=== PATIENT | female | born 1975 | race African-American/Black ===

== ENCOUNTER 2018-08-03 11:01 | Observation (INO) | payer SELFPAY ==
[~2018-08-03] VITALS: Ht 163.8 cm; Wt 141.4 kg
[2018-08-03] VITALS (8 sets, daily range): BP systolic 125–152; BP diastolic 83–111; BMI 52.5
[~2018-08-03 11:01] MED LIST: ACETAMINOPHEN500 M1 PO; ADDERALL 20 MG20 M1 PO; ADIPEX-P37.5 M1 PO; AURODEX OTIC SO10 ML LEFT EAR; BACTROBAN 22 GM22 GM TOPICAL; BUTALB-APAP-CA1 EACH PO; COLACE100 MG PO; COUMADIN5 MG PO; COUMADIN7.5 MG PO; CYCLOBENZAPRINE10 MG PO; DILANTIN100 MG PO; DILAUDID4 MG PO; EC-NAPROSYN500 MG PO; EFFEXOR75 MG PO; ELIQUIS5 MG PO; GEODON40 MG PO; HYDROCODONE-APA1 TAB PO; IMIPRAMINE10 MG PO; KLONOPIN1 MG PO; OXYCODONE H5 MG/5 ML PO; OXYCONTIN10 MG PO; PERCOCET 10/3251 TA1 PO; SEROQUEL400 MG PO; SOMA350 MG PO; ULTRAM50 MG PO; VALIUM5 MG PO; VISTARIL25 MG PO; XANAX1 MG PO; ZANTAC150 MG PO; ZESTORETIC 10/11 TAB PO; ZYPREXA10 MG PO
[2018-08-03 12:01] LABS: BASOPHILS 0.2 % (0-2); EOSINOPHILS 0.5 % (0-7); HEMATOCRIT 39.3 % (36.0-48.0); IMMATURE GRANULOCYTES 0.3 % (0-5); LYMPHOCYTES 19.5 % (15-50); MCHC 33.1 g/dL (31.0-37.0); MCV 87.7 fL (80.0-100.0); MEAN PLATELET VOLUME 10.6 fL (7.4-10.4); MONOCYTES 5.5 % (2-11); RBC 4.48 10x6/uL (4.00-5.40); RDW 13.6 % (11.5-14.5); WBC 9.4 10x3/uL (4.8-10.8)
[2018-08-03 12:02] LABS: UDS - AMPHET POSITIVE QUAL (NEGATIVE); UDS - BARB NEGATIVE QUAL (NEGATIVE); UDS - BENZO NEGATIVE QUAL (NEGATIVE); UDS - COCAINE POSITIVE QUAL (NEGATIVE); UDS - OPIATE NEGATIVE QUAL (NEGATIVE); UDS - PCP NEGATIVE QUAL (NEGATIVE); UDS - THC NEGATIVE QUAL (NEGATIVE)
[2018-08-03 12:11] LABS: PLATELET COUNT 267 10x3/uL (130-400)
[2018-08-03 12:14] LABS: ALBUMIN 3.3 g/dL (3.4-5.0); ANION GAP 15.9 mmol/L (8-16); BILIRUBIN - TOTAL 0.78 mg/dL (0.2-1.3); CALCIUM 9.3 mg/dL (8.5-10.1); CARBON DIOXIDE 24.6 mmol/L (21.0-32.0); CREATININE - SERUM 1.1 mg/dL (0.6-1.3); POTASSIUM - SERUM 3.5 mmol/L (3.5-5.1); PROTEIN - SERUM 7.5 g/dL (6.4-8.2)
[2018-08-03 12:16] LABS: APPEARANCE SL CLDY (CLEAR); BACTERIA MANY /hpf (NONE SEEN); BILIRUBIN NEGATIVE (NEGATIVE); COLOR YELLOW (YELLOW); EPITHELIAL CELLS 0-5 /hpf (0-5); GLUCOSE NEGATIVE (NEGATIVE); KETONE NEGATIVE (NEGATIVE); MUCUS <1+ /lpf (NONE SEEN); NITRITE NEGATIVE (NEGATIVE); PROTEIN NEGATIVE (NEGATIVE); RED CELLS - URINE 0-5 /hpf (0-5); SPECIFIC GRAVITY 1.005 (1.005-1.020); UROBILINOGEN NORMAL (NORMAL)
--- NOTE | 2018-08-03 12:22 | NUR ---
PT CALLING OUT TO NURSE AT THIS TIME, STATES THAT SHE WANTS TO SEE HER CHILDREN. THE PATIENT IS INFORMED AT THIS TIME THAT SHE HAS NOT HAD ANY VISITORS IN THE DEPARTMENT. SHE BEGINS CRYING AND REPORTS THAT SHE CAN HEAR HER CHILDREN. INFORMED PATIENT THAT HER CHILDREN WERE NOT HERE AND THAT IF THEY CAME THEY WOULD BE ALLOWED TO SEE HER. PATIENT CONTINUES CRYING.
--- NOTE | 2018-08-03 14:05 | NUR ---
PT STABLE AAO X 4 CALL LIGHT WITHIN REACH, DENIES NEEDS, WILL CONTINUE TO MONITOR,
--- NOTE | 2018-08-03 15:08 | NUR ---
INFORMATION FAXED TO CALL CENTER. PT REFUSED MEDICATION. PT IN ROOM CRYING WITH PARANOID THOUGHTS. A CUP WAS GIVEN SO PT CAN GET WATER. REFUSED WATER FROM STAFF. CALL LIGHT WITHIN REACH, WILL CONTINUE TO MONITOR.
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
--- NOTE | 2018-08-03 17:25 | NUR ---
REPORT CALLED TO NURSE JENNIFER. ROOM 2311. PT STABLE AT THIS TIME.
--- NOTE | 2018-08-03 18:22 | NUR ---
PT RECIEVED TO ROOM PLACED ON MONITORING EQUIPMENT AND ALARMS SET, NO UN USED EQUIPMENT IN ROOM, DR KATE HERE AND IN ROOM FOR CONSULT
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
--- NOTE | 2018-08-03 20:00 | NUR ---
PT STATES "THAT SANDWICH IS HORRIBLE", OFFERED PT SOMETHING ELSE TO EAT AND WAS GOING TO THROW SANDWICH AWAY, BUT PT WISHES TO KEEP IT FOR NOW. VALERIO LEMON KING SALMON PROVIDED WITH ICE, WILL CONT TO MONITOR FOR CHANGES.
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
--- NOTE | 2018-08-03 21:45 | NUR ---
PT ASSISTED UP TO BSC, VOIDED APPROX 250 CONCENTRATED URINE AND HAD A SMALL FORMED BROWN STOOL, PT GOT SELF BACK TO BED AND WAS RECONNECTING MONITORING EQUIPMENT, CALM AND COOPERATIVE AT THIS TIME.
--- NOTE | 2018-08-03 22:30 | NUR ---
PT STATES " THOSE PILLS YOU HAVE FOR ME ARE JUST MY REGULAR MEDICINE NOTHING ELSE", REASSURED PT THE ONLY THING THAT WOULD BE GIVEN TO HER WAS WHAT IS ORDERED AND THAT WAS HER GEODON AND CLONOPIN. PT STATES " I JUST WANT THE VOICES IN MY HEAD TO STOP", EVENING MEDS GIVEN, PT DENIES FURTHER NEEDS.
--- NOTE | 2018-08-03 23:30 | NUR ---
REASSESSMENT COMPLETED, PT RESTING IN BED EYES CLOSED, RESP EVEN AND UNLABORED, VSS, WILL CONT TO MONITOR FOR CHANGES.
[2018-08-04] VITALS (23 sets, daily range): BP systolic 87–136; BP diastolic 58–94; Ht 163.8 cm; Wt 141.4 kg
--- NOTE | 2018-08-04 01:00 | NUR ---
NO CHANGES IN STATUS AT THIS TIME, REMAINS VISIBLE TO NURSES STATION, CALL LIGHT IN REACH.
--- NOTE | 2018-08-04 03:00 | NUR ---
REASSESSMENT COMPLETED, PT RESTING IN BED EYES CLOSED, RESP EVEN AND UNLABORED, VSS, PT EASILY AWAKENS, DENIES NEEDS, WILL CONT TO MONITOR.
--- NOTE | 2018-08-04 05:30 | NUR ---
PT RESTING IN BED, VSS, BP STABLE, CM-SR, NO S/S OF DISTRESS, WILL REPORT TO ONCOMING SHIFT.
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
--- NOTE | 2018-08-04 16:00 | MORECARE ---
CASE MANAGEMENT DISCHARGE SUMMARY PATIENT: HI MARTINEZ UNIT: [id number] ADM DATE: 08/03/18 AGE: 42 : 75 SEX: F ROOM/BED: D.2311 AUTHOR: BURAK MENARD PHYSICIAN: REFERRING PHYSICIAN: ALFONSO SAMUEL MD DATE OF SERVICE: 08/04/18 Discharge Plan Patient Name: HI MARTINEZ [facility] [facility] 1975 Planned Disposition: Psych facility Anticipated Discharge Date: Discharge Date: Expected LOS: Initial Reviewer: [email or web address] Initial Review Date: 08/03/2018 Generated: 08/04/18 5:00 pm Comments DCP- Discharge Planning Updated by [email or web address]: Franci Whipple on 08/04/18 12:[address] CM spoke with transfer center to check status of transfer to psychiatric facility. Transfer center stated that she has been denied at several facilities but they have just sent packet to a few other facilities. Awaiting for acceptance. CM will continue to follow and assist as needed with discharge planning / needs. Patient Name: HI MARTINEZ Page [id number] at 1600 All edits/amendments must be made on the electronic document DICTATION DATE: 08/04/181558 RN NIGHT: FRANCIE 08/04/181558 RPT#: [id number] DC DATE: STATUS: ADM IN [facility] [address] [place] [address] END OF REPORT
--- NOTE | 2018-08-04 17:56 | NUR ---
PATIENT SPOKE WITH CALL CENTER ABOUT POSSIBLE PLACEMENT, SHE HAS SINCE BECOME VERY PARINOID, STATES, "THIS SHIT IS VERY SKETCHY". INFORMATION GATHER AT THE REQUEST OF CALL CENTER AND WILL BE FAXED AND CALLED UPON RETRIEVAL FROM LAB AND CHART.
--- NOTE | 2018-08-04 19:30 | NUR ---
REPORT REC'D AND CARE ASSUMED, PT STANDING AT WINDOW IN ROOM, WANTING TO KNOW WHY THERE IS A SCREW IN WINDOW TO HOLD IT SHUT, APPEARS AGGITATED THAT IT WILL NOT OPEN, BSC MOVED FOR PATIENTS COMFORT, BED UP TOO HIGH IN THE AIR, PT STATES "THE BED IS TOO HIGH FOR ME" BED LOWERED INTO LOWEST POSITION, PT BACK TO BED AND ALL MONITORS ESTABLISHED. PT REQUESTING A SNACK PUDDING AND ULI VELOZ PROVIDED, SR UP X 2, CALL LIGHT IN REACH.
--- NOTE | 2018-08-04 20:30 | NUR ---
TRANSFER CENTER CALLED WITH A ROOM NUMBER AT [facility], [place], [place]. EXPLAINED TO PATIENT BED IS AVAILABLE, PT CONSENTS TO TRANSFER AND SIGNATURE OBTAINED.
--- NOTE | 2018-08-04 20:45 | NUR ---
REPORT CALLED TO WAGNER AT [facility], BUSINESS PROCESS ENGINEER NOTIFIED OF PT TRANSFERRING.
--- NOTE | 2018-08-04 20:55 | NUR ---
TUTU CALLED FROM THE TRANSFER CENTER TO SAY THAT PT NEEDED A MENTAL HEALTH SCREENING BEFORE SHE COULD BE TRANSFERRED. [facility], ATTEMPTED TO CALL [facility]AD[facility], ONLY ABLE TO GET AN AUTOMATED MESSAGE, WILL CALL BACK LATER.
--- NOTE | 2018-08-04 21:15 | NUR ---
SPOKE WITH TUTU FROM THE TRANSFER CENTER STATED SHE HAD GOTTEN IN CONTACT WITH [facility] AND A SOCAIL WORKER WOULD BE COMING BY THIS EVENING TO ASSESS PATIENT.
--- NOTE | 2018-08-04 21:30 | NUR ---
PT LYING IN BED CRYING STATES " I JUST WANT TO GO HOME", ATTEMPTED TO REASSURE PT AT THIS TIME, VSS, WILL CONT TO MONITOR FOR CHANGES.
--- NOTE | 2018-08-04 22:20 | NUR ---
PT REMAINS AGITATED AND CRYING, AGREES TO TAKE EVENING MEDS AT THIS TIME, EVENING MEDS GIVEN ORDERED, PT REQUESTING A COKE, VALERIO COLA PROVIDED.
--- NOTE | 2018-08-04 22:40 | NUR ---
[facility] CALLED FOR TRANSPORT.
--- NOTE | 2018-08-04 22:45 | NUR ---
[facility] UNIT TO DO MENTAL HEALTH SCREENING, PT REMAINS TEARFUL UPON KIMBER ENTERING ROOM, PT REQUESTS NURSE BE IN ROOM WELL, I REMAINED IN ROOM WITH PATIENT THROUGH THE SCREENING.
--- NOTE | 2018-08-05 12:41 | CN ---
PATIENT NAME:HI MARTINEZ MEDICAL RECORD: [id number] : 75 LOCATION:NATAL[facility].2311 ADMIT DATE: 08/03/18 ACCOUNT: [id number] CONSULTING PHYSICIAN: LING WEINBERG MD REFERRING PHYSICIAN: ALFONSO SAMUEL MD DATE OF CONSULTATION: 08/03/2018 PSYCHIATRIC CONSULTATION IDENTIFYING DATA: The patient is 42 years old and she is admitted to the hospital secondary to a polysubstance overdose. CHIEF COMPLAINT: Hallucinations. HISTORY OF PRESENT ILLNESS: The patient is very agitated, saying that she is hearing voices, seeing things. She is afraid to go to sleep and afraid someone or something is going to hurt her. Unfortunately, she has also been using methamphetamine and cocaine. Further issues that are problematic is the fact that she was just recently discharged from [facility] for an inpatient stay, but has not been taking any of her discharge medications. She tells me that she took a handful of hydrochlorothiazide, but apparently in the ER, she said she had taken some other things she could not remember. No evidence of acute toxic or metabolic instability at this point and given the fact that what she is taking is unknown, she has been admitted to the intensive care unit for observation and evaluation and if things are clear tomorrow, she can reasonably be transitioned to an inpatient psychiatric facility, which is what she wants to happen. MENTAL STATUS EXAMINATION: The patient is awake, alert and oriented to person, place, time and situation. Her mood is anxious. Her affect is constricted. Thought processes are circumstantial. Memory, concentration, and abstraction abilities are moderately impaired and she denies that she would actively seek to harm herself or others. She is endorsing very vivid active and frightening hallucinations. ASSESSMENT: 1. Schizophrenia. 2. Polysubstance abuse. PLAN: The patient is acutely ill, psychotic and dangerous. She says that she was going to stick a knife into her neck, but instead she decided to take the pills. She needs to be transferred to acute inpatient psychiatric care as soon as that is practicable. I am going to order some p.r.n. and scheduled medications to assist with her current level of agitation. TRANSINT:[id number] Voice Confirmation ID: [id number] DOCUMENT ID: [id number] CONSULT REPORT [id number] HI MARTINEZ PETER MD at 1241 CC: [id number] DICTATION DATE: 08/03/18 183 FLASH DRIER OPERATOR: 08/04/18 0033 DIS IN 08/04/18 [facility] [address] [place] [address]
--- NOTE | 2018-08-07 16:31 | MORECARE ---
CASE MANAGEMENT DISCHARGE SUMMARY PATIENT: HI MARTINEZ UNIT: [id number] ADM DATE: 08/03/18 AGE: 43 : 75 SEX: F ROOM/BED: D.2311 AUTHOR: BURAK MENARD PHYSICIAN: REFERRING PHYSICIAN: ALFONSO SAUMEL MD DATE OF SERVICE: 08/07/18 Discharge Plan Patient Name: HI MARTINEZ [facility] [facility] 1975 Planned Disposition: Psych facility Anticipated Discharge Date: Discharge Date: 08/04/2018 Expected LOS: Initial Reviewer: [email or web address] Initial Review Date: 08/03/2018 Generated: 08/07/18 5:30 pm Comments DCP- Discharge Planning Updated by [email or web address]: Franci Whipple on 08/04/18 12:[address] CM spoke with transfer center to check status of transfer to psychiatric facility. Transfer center stated that she has been denied at several facilities but they have just sent packet to a few other facilities. Awaiting for acceptance. CM will continue to follow and assist as needed with discharge planning / needs. Last DP export: 08/04/18 3:00 pm Patient Name: HI MARTINEZ Page [phone] at 1631 All edits/amendments must be made on the electronic document DICTATION DATE: 08/07/18 1630 PASSENGER CAR UPHOLSTERER APPRENTICE: FRANCIE 08/07/18 1630 RPT#: [id number] DC DATE:08/04/18 STATUS: DIS IN [facility] [address] [place] [address] END OF REPORT
[2018-08-10 19:10] LABS: CHLAMYDIA TRACHOMATIS, NAA Negative (Negative)
== END 2018-08-04 23:30 | disposition short-term general hospital (02) ==
LOC: D.ER 11:01 → D.EDHOLD 15:31 → D.ICU 15:31 → D.EDHOLD 15:31 → D.ICU 15:31 → OBSVTIME 16:41 → D.ICU 17:13
PROVIDERS: Emergency Medicine; ADMIT Internal Medicine Nephrology
DX: T50.2X2A Poisoning by carbonic-anhydrase inhibitors, benzothiadiazides and other diuretics, intentional self-harm, initial encounter (principal); F17.203 Nicotine dependence unspecified, with withdrawal; I10 Essential (primary) hypertension; N39.0 Urinary tract infection, site not specified; E11.9 Type 2 diabetes mellitus without complications; G40.909 Epilepsy, unspecified, not intractable, without status epilepticus; F41.8 Other specified anxiety disorders; F14.10 Cocaine abuse, uncomplicated; F15.10 Other stimulant abuse, uncomplicated; E66.01 Morbid (severe) obesity due to excess calories; Z68.43 Body mass index [BMI] 50.0-59.9, adult

== ENCOUNTER 2019-04-09 05:45 | Emergency (ER) | payer MEDICAID ==
[~2019-04-09] VITALS: Ht 163.8 cm; Wt 158.8 kg
[2019-04-09 05:51] VITALS: Ht 163.8 cm; Wt 158.8 kg
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
[2019-04-09 06:33] LABS: BASOPHILS 0.3 % (0-2); EOSINOPHILS 1.7 % (0-7); HEMATOCRIT 41.8 % (36.0-48.0); HEMOGLOBIN 13.3 g/dL (12-16); IMMATURE GRANULOCYTES 0.2 % (0-5); MCH 28.4 pg (26.0-34.0); MCHC 31.8 g/dL (31.0-37.0); MCV 89.3 fL (80.0-100.0); MEAN PLATELET VOLUME 10.3 fL (7.4-10.4); MONOCYTES 6.7 % (2-11); NEUTROPHILS 52.1 % (40-80); PLATELET COUNT 288 10x3/uL (130-400); RBC 4.68 10x6/uL (4.00-5.40); RDW 13.8 % (11.5-14.5); WBC 6.6 10x3/uL (4.8-10.8)
[2019-04-09 06:40] LABS: HCG SERUM NEGATIVE (NEGATIVE)
[2019-04-09 06:53] LABS: ALBUMIN 3.5 g/dL (3.4-5.0); ANION GAP 12.1 mmol/L (8-16); BILIRUBIN - TOTAL 0.9 mg/dL (0.2-1.3); CALCIUM 9.3 mg/dL (8.5-10.1); CARBON DIOXIDE 30.1 mmol/L (21.0-32.0); POTASSIUM - SERUM 4.2 mmol/L (3.5-5.1); PROTEIN - SERUM 6.9 g/dL (6.4-8.2)
[2019-04-09 08:54] LABS: APPEARANCE CLEAR (CLEAR); BILIRUBIN NEGATIVE (NEGATIVE); COLOR STRAW (YELLOW); GLUCOSE NEGATIVE (NEGATIVE); KETONE NEGATIVE (NEGATIVE); NITRITE NEGATIVE (NEGATIVE); PROTEIN NEGATIVE (NEGATIVE); SPECIFIC GRAVITY 1.005 (1.005-1.020); UROBILINOGEN NORMAL (NORMAL)
[2019-04-09 08:59] LABS: UDS - AMPHET POSITIVE QUAL (NEGATIVE); UDS - BARB NEGATIVE QUAL (NEGATIVE); UDS - BENZO NEGATIVE QUAL (NEGATIVE); UDS - COCAINE NEGATIVE QUAL (NEGATIVE); UDS - OPIATE NEGATIVE QUAL (NEGATIVE); UDS - PCP NEGATIVE QUAL (NEGATIVE); UDS - THC NEGATIVE QUAL (NEGATIVE)
[2019-04-09 10:57] VITALS: BP 127/79
== END 2019-04-09 11:27 | disposition home or self-care (01) ==
LOC: D.ER 05:45
PROVIDERS: Family Medicine
DX: R45.4 Irritability and anger (principal); F15.10 Other stimulant abuse, uncomplicated; E11.9 Type 2 diabetes mellitus without complications; I10 Essential (primary) hypertension

== ENCOUNTER 2019-04-10 17:05 | Emergency (ER) | payer MEDICAID ==
[~2019-04-10] VITALS: Ht 163.8 cm; Wt 112.3 kg
[2019-04-10 17:08] VITALS: Ht 163.8 cm; Wt 112.3 kg
[2019-04-10 19:27] LABS: BASOPHILS 0.4 % (0-2); EOSINOPHILS 1.5 % (0-7); HEMATOCRIT 41.8 % (36.0-48.0); HEMOGLOBIN 13.7 g/dL (12-16); IMMATURE GRANULOCYTES 0.4 % (0-5); LYMPHOCYTES 37.5 % (15-50); MCH 28.9 pg (26.0-34.0); MCHC 32.8 g/dL (31.0-37.0); MCV 88.2 fL (80.0-100.0); MEAN PLATELET VOLUME 10.7 fL (7.4-10.4); MONOCYTES 7.6 % (2-11); NEUTROPHILS 52.6 % (40-80); PLATELET COUNT 298 10x3/uL (130-400); RBC 4.74 10x6/uL (4.00-5.40); RDW 13.7 % (11.5-14.5); WBC 7.9 10x3/uL (4.8-10.8)
[2019-04-10 19:34] LABS: APPEARANCE HAZY (CLEAR); BILIRUBIN NEGATIVE (NEGATIVE); COLOR YELLOW (YELLOW); GLUCOSE NEGATIVE (NEGATIVE); KETONE NEGATIVE (NEGATIVE); NITRITE NEGATIVE (NEGATIVE); PROTEIN NEGATIVE (NEGATIVE); SPECIFIC GRAVITY 1.025 (1.005-1.020); UROBILINOGEN NORMAL (NORMAL)
[2019-04-10 19:35] LABS: BACTERIA MANY /hpf (NEGATIVE); RED CELLS - URINE 0-5 /hpf (0-5)
[2019-04-10 19:45] LABS: ALBUMIN 3.7 g/dL (3.4-5.0); ANION GAP 14.9 mmol/L (8-16); BILIRUBIN - TOTAL 1.05 mg/dL (0.2-1.3); CALCIUM 9.1 mg/dL (8.5-10.1); CARBON DIOXIDE 24.9 mmol/L (21.0-32.0); MAGNESIUM - SERUM 1.9 mg/dL (1.8-2.4); POTASSIUM - SERUM 3.8 mmol/L (3.5-5.1); PROTEIN - SERUM 7.4 g/dL (6.4-8.2)
[2019-04-10 19:52] LABS: UDS - AMPHET POSITIVE QUAL (NEGATIVE); UDS - BARB NEGATIVE QUAL (NEGATIVE); UDS - BENZO NEGATIVE QUAL (NEGATIVE); UDS - COCAINE NEGATIVE QUAL (NEGATIVE); UDS - OPIATE NEGATIVE QUAL (NEGATIVE); UDS - PCP NEGATIVE QUAL (NEGATIVE); UDS - THC NEGATIVE QUAL (NEGATIVE)
[2019-04-10 23:32] VITALS: BP 139/95
== END 2019-04-10 23:33 | disposition home or self-care (01) ==
LOC: D.ER 17:05
PROVIDERS: Family Medicine
DX: F43.10 Post-traumatic stress disorder, unspecified (principal); F23 Brief psychotic disorder; F15.10 Other stimulant abuse, uncomplicated